=== PATIENT | female | born 1930 | race Caucasian/White ===

== ENCOUNTER 2017-10-17 07:43 | Outpatient (CLI) | payer OTHER | END 2017-10-17 07:51 | disposition home or self-care (01) | LOC: TOM 07:43 | DX: I11.9 Hypertensive heart disease without heart failure (principal) ==

== ENCOUNTER 2017-12-16 10:34 | Outpatient (CLI) | payer OTHER | END 2017-12-16 11:20 | disposition home or self-care (01) | LOC: RAD 501 10:34 | DX: M25.512 Pain in left shoulder (principal) ==

== ENCOUNTER 2019-01-07 09:28 | Outpatient (CLI) | payer OTHER | END 2019-01-07 09:48 | disposition home or self-care (01) | LOC: TOM 09:28 | DX: I11.9 Hypertensive heart disease without heart failure (principal) ==